=== PATIENT | male | born 1975 | race Caucasian/White ===

== ENCOUNTER 2021-02-28 15:15 | Emergency (ER) | payer BC ==
--- NOTE | 2021-02-28 16:59 | XR ---
EXAMINATION TYPE: XR chest 2V DATE OF EXAM: 02/28/2021 COMPARISON: 04/12/2012 HISTORY: Short of breath TECHNIQUE: 2 view FINDINGS: Heart and mediastinum are normal. Lungs are clear. Diaphragm is normal. Bony thorax appears normal. IMPRESSION: Normal chest. No change.
[2021-02-28 17:03] LABS: ALT 16 U/L (4-49); AST 27 U/L (17-59); African American GFR (CKD) >90 (>60 ml/min/1.73 sqM); Albumin 3.9 g/dL (3.5-5.0); Alkaline Phosphatase 65 U/L (38-126); Amylase 57 U/L (30-110); Anion Gap 9 mmol/L; Blood Urea Nitrogen 9 mg/dL (9-20); Calcium 9.2 mg/dL (8.4-10.2); Carbon Dioxide 23 mmol/L (22-30); Chloride 107 mmol/L (98-107); Glucose 97 mg/dL (74-99); Lipase 69 U/L (23-300); Non-African American GFR(CKD) >90 (>60 ml/min/1.73 sqM); Potassium 4.2 mmol/L (3.5-5.1); Sodium 139 mmol/L (137-145); Total Bilirubin 0.8 mg/dL (0.2-1.3); Total Protein 6.8 g/dL (6.3-8.2)
[2021-02-28 17:04] LABS: Basophils % (A) 0 %; Eosinophils # (A) 0.2 k/uL (0-0.7); Eosinophils % (A) 2 %; HCT 45.3 % (39.0-53.0); HGB 16.7 gm/dL (13.0-17.5); Hyperchromasia Moderate; Lymphocytes # (A) 1.6 k/uL (1.0-4.8); Lymphocytes % (A) 20 %; MCH 31.2 pg (25.0-35.0); MCHC 36.8 g/dL (31.0-37.0); MCV 84.7 fL (80.0-100.0); Mean Platelet Volume 7.4; Monocytes # (A) 0.4 k/uL (0-1.0); Monocytes % (A) 6 %; Neutrophils # (A) 5.6 k/uL (1.3-7.7); Neutrophils % (A) 70 %; Platelet Count 231 k/uL (150-450); RBC 5.35 m/uL (4.30-5.90); RDW 13.7 % (11.5-15.5)
[2021-02-28 17:07] LABS: Partial Thromboplastin Time 25.1 sec (22.0-30.0); Prothrombin Time 10.8 sec (9.0-12.0)
--- NOTE | 2021-02-28 18:50 | CT ---
EXAMINATION TYPE: CT abdomen pelvis w con DATE OF EXAM: 02/28/2021 COMPARISON: None HISTORY: Lower back and abdominal pain CT DLP: 1761 mGycm Automated exposure control for dose reduction was used. CONTRAST: Performed with IV Contrast, patient injected with 100 mL of Isovue 300. Images obtained from the diaphragm to the floor the pelvis with IV contrast. Lung bases are clear. There is no pleural effusion. Heart size is normal. There is no pericardial eff usion. Liver spleen stomach pancreas gallbladder appear normal. The bile ducts are nondilated. There is no adrenal mass. Kidneys show satisfactory contrast opacification. There is no hydronephrosi s. Delayed images show normal renal excretion. Ureters are not dilated. There is no retroperitoneal a denopathy. Bladder distends smoothly. There is no inguinal hernia. There is no free fluid in the pelv is. There is no mesenteric edema. There is no ascites or free air. There is no bowel obstruction. Appendi x is posterior and appears normal. There are a few sigmoid diverticula. There is no diverticulitis. The lumbar vertebra show fairly normal alignment. There is no compression fracture. The bony pelvis i s intact. Hip joints are intact. There is small posterior disc herniation at L4-5. IMPRESSION: Negative CT scan of the abdomen pelvis. Mild posterior disc herniation at L4-5.
--- NOTE | 2021-02-28 19:27 | ED ---
General Adult HPI - General Chief complaint: Abdominal Pain Stated complaint: Chest, back, abd pain PCP sent pt Time Seen by Provider: 02/28/21 16:06 Source: patient, RN notes reviewed, old records reviewed Mode of arrival: ambulatory Limitations: no limitations - History of Present Illness Initial comments: I evaluated the patient when he was placed in a room. Patient is a 45-year-old male with past medical history remarkable for acid reflux, GERD, hypertension who presents emergency Department complaining of a feeling of abdominal fullness as well as a pleuritic chest pain over the ribs. Patient states this has been ongoing for a few days, however is not getting improved. He describes a feeling of abdominal fullness in his upper abdomen. It does not resolve with bowel movements. Denies any nausea or vomiting. Does endorse some mild acid reflux like symptoms with burning sensation into his chest. He is also endorsing a pleuritic, achy rib pain that is worse on deep inspiration located mainly left posterior axillary line over the inferior rib. He denies any nausea, vomiting, diarrhea, change in bowel habits. Denies any urinary complaints. Has no dysuria or hematuria. Denies any chest pain otherwise or shortness of breath at this time. Denies any sick contacts, fevers, chills. Denies any history of blood clots. He endorses no acute complaints at this time. He is concerned as he is uncertain the etiology for his abdominal discomfort and pleuritic pain. He is tolerating by mouth intake without difficulty. - Related Data Home Medications Medication Instructions Recorded Confirmed Ibuprofen [Motrin Ib] 800 mg PO Q8H PRN 02/28/21 02/28/21 Omeprazole 20 mg PO DAILY 02/28/21 02/28/21 amLODIPine [Norvasc] 5 mg PO DAILY 02/28/21 02/28/21 Allergies Allergy/AdvReac Type Severity Reaction Status Date / Time No Known Allergies Allergy Verified 02/28/21 16:43 Review of Systems ROS Statement: Those systems with pertinent positive or pertinent negative responses have been documented in the HPI. Review of Systems: CONST: Denies fever EYES: Denies blurry vision ENT: Denies nasal congestion C/V: Denies Chest pain RESP: Denies shortness of breath GI: Endorses abdominal fullness : Denies dysuria SKIN: Denies rash. MSK: Endorses pleuritic rib pain NEURO: Denies headache ROS Other: All systems not noted in ROS Statement are negative. Past Medical History Past Medical History: GERD/Reflux, Hypertension History of Any Multi-Drug Resistant Organisms: None Reported Past Surgical History: No Surgical Hx Reported Past Psychological History: No Psychological Hx Reported Smoking Status: Never smoker Past Alcohol Use History: Rare Past Drug Use History: None Reported General Exam - General Exam Comments Initial Comments: General: Appears in no acute distress. HEAD: Normal with no signs of head trauma. EYES: PERRLA, EOMI, conjunctiva normal, no discharge. ENT: Hearing grossly intact, normal oropharynx. RESPIRATORY: Clear breath sounds bilaterally. No wheezes, rales, or rhonchi. C/V: Regular rate and rhythm. S1 and S2 auscultated, no edema, peripheral pulses 2+ and intact throughout ABD: Abd is soft, nondistended. There is minimal tenderness palpation over the bilateral upper quadrants and epigastric region. There is no guarding. There are no peritoneal signs. No rebound tenderness. Abdominal exam is unremarkable. EXT: Normal range of motion, no obvious deformity SKIN: No rashes or lesions observed on exposed skin. NEURO: Alert and oriented 4. Limitations: no limitations Course Vital Signs 02/28/21 02/28/21 15:20 19:40 Temperature 99.1 F 98.8 F Pulse Rate 73 76 Respiratory 18 20 Rate Blood Pressure 152/98 136/84 O2 Sat by Pulse 98 96 Oximetry Medical Decision Making - Medical Decision Making Based on the patient's presentation and physical exam, I'm concerned for acute abdominal process for his current symptoms but cannot rule out cardiac etiology or pulmonary embolism at this time. He is low risk and therefore we will obtain a d-dimer in addition to troponin abdominal laboratory studies. EKG, chest x- ray will be obtained. I offered the patient analgesia her medications and refuses limit this time. He will be connected to continuous cardiac monitoring while he is here in the department. He was in agreement this plan. Patient's EKG shows no signs of acute ischemia. Chest x-ray shows no acute cardiopulmonary process. Laboratory studies are all within normal limits including a negative troponin and a negative COVID-19 swab. D-dimer is within normal limits. On reevaluation, patient still concerned regarding his abdominal fullness and I did offer him a CT abdomen and pelvis to which she was in agreement this time. He is still refusing analgesia at this time. CT abdomen and pelvis returned and was remarkable for no acute intra-abdominal process. There is a mild posterior disc herniation at L4-L5 which is lower than his current symptoms. I discussed the patient's imaging with the patient. I've no explaination for his abdominal fullness sensation, however workup is negative. I do believe it is best for him to follow up with his PCP as well as gastroenterology and he was in agreement this plan. I instructed the patient to follow up with their PCP in the next 3 days. I provided contact information for follow up with Dr. Hinson. I explained that the patient should return to the emergency department if they experience any worsening symptoms. Strict return precautions were discussed with the patient. The patient expressed understanding of these instructions. I answered all questions that the patient had. The patient was discharged home in fair condition with their prescriptions and follow up information. - Lab Data Result diagrams: 02/28/21 16:42 02/28/21 16:42 Lab Results 02/28/21 02/28/21 02/28/21 Range/Units 16:42 16:42 16:42 WBC 8.0 (3.8-10.6) k/uL RBC 5.35 (4.30-5.90) m/uL Hgb 16.7 (13.0-17.5) gm/dL Hct 45.3 (39.0-53.0) % MCV 84.7 (80.0-100.0) fL MCH 31.2 (25.0-35.0) pg MCHC 36.8 (31.0-37.0) g/dL RDW 13.7 (11.5-15.5) % Plt Count 231 (150-450) k/uL MPV 7.4 Neutrophils % 70 % Lymphocytes % 20 % Monocytes % 6 % Eosinophils % 2 % Basophils % 0 % Neutrophils # 5.6 (1.3-7.7) k/uL Lymphocytes # 1.6 (1.0-4.8) k/uL Monocytes # 0.4 (0-1.0) k/uL Eosinophils # 0.2 (0-0.7) k/uL Basophils # 0.0 (0-0.2) k/uL Hyperchromasia Moderate PT 10.8 (9.0-12.0) sec INR 1.0 (<1.2) APTT 25.1 (22.0-30.0) sec D-Dimer (<0.60) mg/L FEU Sodium 139 (137-145) mmol/L Potassium 4.2 (3.5-5.1) mmol/L Chloride 107 (98-107) mmol/L Carbon Dioxide 23 (22-30) mmol/L Anion Gap 9 mmol/L BUN 9 (9-20) mg/dL Creatinine 0.76 (0.66-1.25) mg/dL Est GFR (CKD-EPI)AfAm >90 (>60 ml/min/1.73 sqM) Est GFR (CKD-EPI)NonAf >90 (>60 ml/min/1.73 sqM) Glucose 97 (74-99) mg/dL Calcium 9.2 (8.4-10.2) mg/dL Total Bilirubin 0.8 (0.2-1.3) mg/dL AST 27 (17-59) U/L ALT 16 (4-49) U/L Alkaline Phosphatase 65 (38-126) U/L Troponin I (0.000-0.034) ng/mL Total Protein 6.8 (6.3-8.2) g/dL Albumin 3.9 (3.5-5.0) g/dL Amylase 57 (30-110) U/L Lipase 69 (23-300) U/L Coronavirus (PCR) (Not Detectd) 02/28/21 02/28/21 02/28/21 Range/Units 16:42 16:42 16:42 WBC (3.8-10.6) k/uL RBC (4.30-5.90) m/uL Hgb (13.0-17.5) gm/dL Hct (39.0-53.0) % MCV (80.0-100.0) fL MCH (25.0-35.0) pg MCHC (31.0-37.0) g/dL RDW (11.5-15.5) % Plt Count (150-450) k/uL MPV Neutrophils % % Lymphocytes % % Monocytes % % Eosinophils % % Basophils % % Neutrophils # (1.3-7.7) k/uL Lymphocytes # (1.0-4.8) k/uL Monocytes # (0-1.0) k/uL Eosinophils # (0-0.7) k/uL Basophils # (0-0.2) k/uL Hyperchromasia PT (9.0-12.0) sec INR (<1.2) APTT (22.0-30.0) sec D-Dimer 0.18 (<0.60) mg/L FEU Sodium (137-145) mmol/L Potassium (3.5-5.1) mmol/L Chloride (98-107) mmol/L Carbon Dioxide (22-30) mmol/L Anion Gap mmol/L BUN (9-20) mg/dL Creatinine (0.66-1.25) mg/dL Est GFR (CKD-EPI)AfAm (>60 ml/min/1.73 sqM) Est GFR (CKD-EPI)NonAf (>60 ml/min/1.73 sqM) Glucose (74-99) mg/dL Calcium (8.4-10.2) mg/dL Total Bilirubin (0.2-1.3) mg/dL AST (17-59) U/L ALT (4-49) U/L Alkaline Phosphatase (38-126) U/L Troponin I <0.012 (0.000-0.034) ng/mL Total Protein (6.3-8.2) g/dL Albumin (3.5-5.0) g/dL Amylase (30-110) U/L Lipase (23-300) U/L Coronavirus (PCR) Not Detected (Not Detectd) - EKG Data -: EKG Interpreted by Me EKG Comments: 12-lead Electrocardiogram Interpretation Note EKG was reviewed and interpreted by myself. 12-lead ECG performed at 1607 is interpreted by me as revealing normal sinus rhythm at a rate of 75 beats per minute. [place] is normal. UT interval is 164 ms, QRS durations 106 seconds, QTC is 455 ms.. There were no ST or T wave abnormalities to suggest myocardial ischemia or injury. Patient appears to have it incomplete right bundle branch block. R wave progression across the precordium was delayed.. By my interpretation this EKG is non-diagnostic for acute ischemia. Disposition Clinical Impression: Abdominal pain of unknown etiology Disposition: HOME SELF-CARE Condition: Fair Instructions (If sedation given, give patient instructions): Abdominal Pain (ED) Is patient prescribed a controlled substance at d/c from ED?: No Referrals: Saravanan Mohan MD [Primary Care Provider] - 1-2 days
[2021-02-28 19:43] VITALS: BP 136/84; PULSE 76; RESP 20; TEMP 98.8
== END 2021-02-28 19:44 | disposition home or self-care (01) ==
LOC: EC 15:15
DX: R10.11 Right upper quadrant pain (principal); R10.12 Left upper quadrant pain; I10 Essential (primary) hypertension; K21.9 Gastro-esophageal reflux disease without esophagitis; Z20.822 Contact with and (suspected) exposure to COVID-19
CPT/HCPCS: 99284; 36415; 93005; 85379; 80053; 82150; 83690; 84484; 85025; 85610; 85730; 87635; 71046; 74177; Q9967

== ENCOUNTER → 2022-09-08 | Outpatient (CLI) | payer BC ==
[2022-09-08 15:39] LABS: HCT 48.7 % (39.0-53.0); HGB 16.5 gm/dL (13.0-17.5); MCH 28.8 pg (25.0-35.0); MCHC 33.9 g/dL (31.0-37.0); Mean Platelet Volume 7.5; Platelet Count 237 k/uL (150-450); RBC 5.74 m/uL (4.30-5.90); RDW 13.7 % (11.5-15.5); WBC 8.5 k/uL (3.8-10.6)
[2022-09-08 16:14] LABS: ALT 32 U/L (4-49); AST 33 U/L (17-59); African American GFR (CKD) >90 (>60 ml/min/1.73 sqM); Albumin 4.2 g/dL (3.5-5.0); Albumin/Globulin Ratio 1.4; Alkaline Phosphatase 62 U/L (38-126); Anion Gap 6 mmol/L; Blood Urea Nitrogen 13 mg/dL (9-20); Carbon Dioxide 27 mmol/L (22-30); Chloride 107 mmol/L (98-107); Globulin 2.9 g/dL; Glucose 104 mg/dL (74-99); Non-African American GFR(CKD) >90 (>60 ml/min/1.73 sqM); Potassium 4.7 mmol/L (3.5-5.1); Sodium 140 mmol/L (137-145); Total Bilirubin 0.5 mg/dL (0.2-1.3); Total Protein 7.1 g/dL (6.3-8.2)
--- NOTE | 2022-09-08 16:54 | CT ---
EXAMINATION TYPE: CT angio chest CT DLP: 1206.1 mGycm, Automated exposure control for dose reduction was used. DATE OF EXAM: 09/08/2022 4:40 PM COMPARISON: None CLINICAL INDICATION:Male, 47 years old with history of J98.59 OTHER DISEASES OF MEDIASTINUM, NOT; wid ened mediastinum TECHNIQUE/CONTRAST: CTA scan of the thorax is performed with IV Contrast, patient injected with 100ml mL of Isovue 370, p ulmonary embolism protocol. MIP images are created and reviewed these are created on a separate work station.. FINDINGS: Pulmonary Artery: There is no evidence for a filling defect within the pulmonary vasculature to sugge st acute pulmonary embolism. The pulmonary artery is of normal size. Lungs/Pleura: Few scattered airspace opacities within the left lung. No evidence of focal consolidati on, pleural effusion or pneumothorax. Airway: Large airways are patent. Heart: Heart is within normal limits for size. Vasculature: No evidence of aortic aneurysm. No evidence for dissection or limit evaluation of the ce ntral pulmonary arterial vasculature to suggest pulmonary embolus.2 Mediastinum: No gross evidence of adenopathy. Musculoskeletal: No acute osseous abnormalities Soft Tissues: Mild gynecomastia changes bilaterally. Lower neck: No significant findings. Upper Abdomen: No significant findings. IMPRESSION: 1. No evidence for widened mediastinum. 2. Left upper lung airspace opacities correlate for pneumonia. 3. No evidence for lymphadenopathy or mass. 4. No evidence for aneurysm.
== END | disposition home or self-care (01) ==
LOC: RADCTMAIN 14:40
PROVIDERS: ATTEND Family Medicine
DX: J98.59 Other diseases of mediastinum, not elsewhere classified (principal); R91.8 Other nonspecific abnormal finding of lung field
CPT/HCPCS: 83880; 80053; 85027; 71275; Q9967